=== PATIENT | male | born 1970 | race African-American/Black ===

== ENCOUNTER 2017-11-22 17:35 | Inpatient (IN) ==
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
--- NOTE | 2017-11-22 18:53 | XR ---
EXAM DATE: 11/22/2017 6:48 PM EDT AGE/SEX: 47 years / Male INDICATIONS: Bilateral chest pain. CLINICAL DATA: This is the patient's initial encounter. Patient reports that signs and symptoms have been present for 1 day and indicates a pain score of 5/10. MEDICAL/SURGICAL HISTORY: None. None. COMPARISON: No prior exams available for comparison. FINDINGS: Lungs are focally clear. No pleural effusion evident. Cardiac contours are satisfactory for technique and projection. CONCLUSION: No acute disease Electronically signed by: Laron Gomez MD 11/22/2017 6:51 PM EDT
[2017-11-22 19:12] LABS: Baso # (Auto) 0.1 th/mm3 (0.0-0.2); Baso % (Auto) 0.6 % (0.0-2.0); Eos # (Auto) 0.2 th/mm3 (0.0-0.4); Hematocrit 46.3 % (39.0-51.0); Hemoglobin 15.6 gm/dL (13.0-17.0); Lymph # (Auto) 1.5 th/mm3 (1.0-4.8); Lymph % (Auto) 16.2 % (9.0-44.0); Mean Corpuscular HGB Conc 33.7 % (32.0-36.0); Mean Corpuscular Hemoglobin 24.9 pg (27.0-34.0); Mean Corpuscular Volume 73.8 fL (80.0-100.0); Mean Platelet Volume 8.3 fL (7.0-11.0); Mono # (Auto) 0.7 th/mm3 (0.0-0.9); Mono % (Auto) 8.1 % (0.0-8.0); Neut # (Auto) 6.7 th/mm3 (1.8-7.7); Neut % (Auto) 73.1 % (16.0-70.0); Platelet Count 244 th/mm3 (150-450); Red Blood Count 6.27 mil/mm3 (4.50-5.90); Red Cell Distribution Width 15.6 % (11.6-17.2); White Blood Count 9.2 th/mm3 (4.0-11.0)
[2017-11-22 19:25] LABS: Activated Partial Thrombo Time 24.8 sec (24.3-30.1); INR 1.1 Ratio; Prothrombin Time 11.4 sec (9.8-11.6)
[2017-11-22 19:26] LABS: D-Dimer 0.64 mg/L FEU (0.00-0.50)
[2017-11-22 20:03] LABS: Anion Gap 12 meq/L (5-15); Blood Urea Nitrogen 10 mg/dL (7-18); Calcium 8.8 mg/dL (8.5-10.1); Carbon Dioxide 26.2 meq/L (21.0-32.0); Chloride 102 meq/L (98-107); Creatine Kinase 544 U/L (39-308); Glomerular Filtration Rate 86 mL/min (>89); Glucose,Random 105 mg/dL (74-106); Sodium 140 meq/L (136-145); Troponin I 0.02 ng/mL (0.02-0.05)
[2017-11-22 20:05] LABS: Potassium 2.6 meq/L (3.5-5.1)
[2017-11-22 20:21] LABS: CKMB Percent 0.4 % (0.0-4.0); Creatine Kinase MB 2.4 ng/mL (0.5-3.6)
[2017-11-22] MEDS ORDERED: Potassium Chlor 20 mEq Premix 20 MEQ/100 ML PIGGYBACK IV.SIG ONE (20:25)
[2017-11-22] MEDS ORDERED: Bisacodyl 10 MG Supp RECTAL PRN (22:01)
[2017-11-22 22:39] LABS: Amphetamine Screen,Urine Neg (Neg); Barbiturate Screen,Urine Neg (Neg); Cannabinoid Screen,Urine Neg (Neg); Cocaine Screen,Urine Pos (Neg); Opiate Screen,Urine Neg (Neg)
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
[2017-11-23] MEDS: Sod Chloride 0.9% Inj 1,000 ML IV.CONT SCH ×2 (00:17→14:38)
[2017-11-23 01:01] LABS: Potassium 3.4 meq/L (3.5-5.1)
[2017-11-23 01:05] LABS: Troponin I 0.09 ng/mL (0.02-0.05)
[2017-11-23 01:17] LABS: CKMB Percent 0.6 % (0.0-4.0); Creatine Kinase MB 2.5 ng/mL (0.5-3.6)
[2017-11-23 06:57] LABS: Baso % (Auto) 0.3 % (0.0-2.0); Eos # (Auto) 0.3 th/mm3 (0.0-0.4); Eos % (Auto) 3.7 % (0.0-4.0); Hematocrit 39.3 % (39.0-51.0); Hemoglobin 13.2 gm/dL (13.0-17.0); Lymph # (Auto) 1.9 th/mm3 (1.0-4.8); Mean Corpuscular HGB Conc 33.6 % (32.0-36.0); Mean Corpuscular Volume 74.4 fL (80.0-100.0); Mean Platelet Volume 8.3 fL (7.0-11.0); Mono % (Auto) 11.9 % (0.0-8.0); Neut # (Auto) 4.8 th/mm3 (1.8-7.7); Neut % (Auto) 60.1 % (16.0-70.0); Platelet Count 236 th/mm3 (150-450); Red Blood Count 5.29 mil/mm3 (4.50-5.90); Red Cell Distribution Width 15.1 % (11.6-17.2)
[2017-11-23] MEDS: Acetaminophen 325 MG Tablet PO PRN ×2 (07:39→14:58)
[2017-11-23 07:46] LABS: Alanine Aminotransferase 23 U/L (12-78); Albumin 3.1 g/dL (3.4-5.0); Alkaline Phosphatase 63 U/L (45-117); Anion Gap 11 meq/L (5-15); Aspartate Aminotransferase 22 U/L (15-37); Blood Urea Nitrogen 12 mg/dL (7-18); Calcium 7.7 mg/dL (8.5-10.1); Chloride 103 meq/L (98-107); Creatine Kinase 414 U/L (39-308); Glomerular Filtration Rate 74 mL/min (>89); Glucose,Random 116 mg/dL (74-106); Potassium 3.2 meq/L (3.5-5.1); Sodium 141 meq/L (136-145); Total Protein 6.5 g/dL (6.4-8.2); Troponin I 0.07 ng/mL (0.02-0.05)
[2017-11-23 08:52] LABS: CKMB Percent 0.6 % (0.0-4.0); Creatine Kinase MB 2.4 ng/mL (0.5-3.6)
[2017-11-23] MEDS ORDERED: Senna/Docusate Sodium 8.6/50 MG Tablet PO SCH (09:00)
--- NOTE | 2017-11-23 10:07 | P.PN ---
Subjective Interval history: F/U Fib. Patient has remained in sinus after Cardizem bolus yesterday. He has no more complaints he wants to go home. States he will refrain from using cocaine Physical Exam Vital signs: Vital Signs 11/22/17 17:41 11/22/17 17:46 11/22/17 19:09 Temperature 98.4 F 98.4 F Pulse Rate 68 60 66 Respiratory Rate 18 18 16 Blood Pressure 144/63 H 144/63 H 111/66 Blood Pressure [Left Arm] Blood Pressure [Right Arm] Pulse Oximetry 96 95 11/22/17 20:28 11/22/17 21:01 11/22/17 23:31 Temperature Pulse Rate 74 83 Respiratory Rate 16 16 Blood Pressure 112/61 110/81 Blood Pressure [Left Arm] 111/60 Blood Pressure [Right Arm] 101/49 L Pulse Oximetry 95 97 97 11/23/17 01:00 11/23/17 01:03 11/23/17 02:00 Temperature 97.1 F L Pulse Rate 62 69 74 Respiratory Rate 16 Blood Pressure 141/87 H Blood Pressure [Left Arm] Blood Pressure [Right Arm] Pulse Oximetry 97 11/23/17 03:00 11/23/17 04:59 Temperature Pulse Rate 60 84 Respiratory Rate 16 Blood Pressure 153/92 H Blood Pressure [Left Arm] Blood Pressure [Right Arm] Pulse Oximetry 100 Intake & Output 11/22/17 11/23/17 11/23/17 18:59 06:59 18:59 Intake Total 480 / 480 Output Total 900 / 900 Balance -420 / -420 Weight 154.221 kg 155.2 kg Intake: Oral 480 / 480 Output: Urine 900 / 900 Other: Weight On Admission 154.2 kg Narrative: GENERAL: Middle-aged white male in no acute distress. HEENT: PERRLA, EOMI. No scleral icterus or conjunctival pallor. No lid lag or facial droop. CARDIOVASCULAR: Regular rate and rhythm. No obvious murmurs to auscultation. No chest tenderness to palpation. RESPIRATORY: No obvious rhonchi or wheezing. Clear to auscultation. Breath sounds equal bilaterally. GASTROINTESTINAL: Abdomen soft, non-tender, nondistended. BS normal. MUSCULOSKELETAL: Extremities without clubbing, cyanosis, or edema. No obvious deformities. NEUROLOGICAL: Awake, alert and oriented x4. No focal neurologic deficits. Moving both upper and lower extremities spontaneously. Results - Labs CBC & Chem 7: 11/23/17 05:10 11/23/17 05:10 Laboratory Results - last 24 hr 11/22/17 11/22/17 11/22/17 18:54 19:00 19:00 WBC 9.2 RBC 6.27 H Hgb 15.6 Hct 46.3 MCV 73.8 L MCH 24.9 L MCHC 33.7 RDW 15.6 Plt Count 244 MPV 8.3 Neut % (Auto) 73.1 H Lymph % (Auto) 16.2 [place]bert % (Auto) 8.1 H Eos % (Auto) 2.0 Baso % (Auto) 0.6 Neut # (Auto) 6.7 Lymph # (Auto) 1.5 [place] # (Auto) 0.7 Eos # (Auto) 0.2 Baso # (Auto) 0.1 WBC Differential . Differential Comment Auto diff final PT 11.4 INR 1.1 APTT 24.8 D-Dimer Quant (PE/DVT) 0.64 H Sodium Potassium Chloride Carbon Dioxide Anion Gap BUN Creatinine Estimated GFR POC Glucose 120 H Random Glucose Calcium Magnesium Total Bilirubin AST ALT Alkaline Phosphatase Total Creatine Kinase CK-MB (CK-2) CK-MB (CK-2) % Troponin I B-Natriuretic Peptide Total Protein Albumin Urine Opiates Screen Ur Barbiturates Screen Ur Amphetamines Screen U Benzodiazepines Scrn Urine Cocaine Screen U Cannabinoids Screen Serum Alcohol 11/22/17 11/22/17 11/22/17 19:00 19:00 21:08 WBC RBC Hgb Hct MCV MCH MCHC RDW Plt Count MPV Neut % (Auto) Lymph % (Auto) [place] % (Auto) Eos % (Auto) Baso % (Auto) Neut # (Auto) Lymph # (Auto) [place] # (Auto) Eos # (Auto) Baso # (Auto) WBC Differential Differential Comment PT INR APTT D-Dimer Quant (PE/DVT) Sodium 140 Potassium 2.6 L* Chloride 102 Carbon Dioxide 26.2 Anion Gap 12 BUN 10 Creatinine 1.10 Estimated GFR 86 L POC Glucose Random Glucose 105 Calcium 8.8 Magnesium 2.0 Total Bilirubin AST ALT Alkaline Phosphatase Total Creatine Kinase 544 H CK-MB (CK-2) 2.4 CK-MB (CK-2) % 0.4 Troponin I 0.02 B-Natriuretic Peptide 41 Total Protein Albumin Urine Opiates Screen Neg Ur Barbiturates Screen Neg Ur Amphetamines Screen Neg U Benzodiazepines Scrn Neg Urine Cocaine Screen Pos U Cannabinoids Screen Neg Serum Alcohol Less than 3 11/23/17 11/23/17 11/23/17 00:12 05:10 05:10 WBC 8.0 RBC 5.29 Hgb 13.2 D Hct 39.3 MCV 74.4 L MCH 25.0 L MCHC 33.6 RDW 15.1 Plt Count 236 MPV 8.3 Neut % (Auto) 60.1 Lymph % (Auto) 24.0 Elbert % (Auto) 11.9 H Eos % (Auto) 3.7 Baso % (Auto) 0.3 Neut # (Auto) 4.8 Lymph # (Auto) 1.9 [place]bert # (Auto) 1.0 H Eos # (Auto) 0.3 Baso # (Auto) 0.0 WBC Differential . Differential Comment Auto diff final PT INR APTT D-Dimer Quant (PE/DVT) Sodium 141 Potassium 3.4 L D 3.2 L Chloride 103 Carbon Dioxide 27.0 Anion Gap 11 BUN 12 Creatinine 1.25 Estimated GFR 74 L POC Glucose Random Glucose 116 H Calcium 7.7 L D Magnesium Total Bilirubin 0.7 AST 22 ALT 23 Alkaline Phosphatase 63 Total Creatine Kinase 442 H 414 H CK-MB (CK-2) 2.5 2.4 CK-MB (CK-2) % 0.6 0.6 Troponin I 0.09 H 0.07 H B-Natriuretic Peptide Total Protein 6.5 Albumin 3.1 L Urine Opiates Screen Ur Barbiturates Screen Ur Amphetamines Screen U Benzodiazepines Scrn Urine Cocaine Screen U Cannabinoids Screen Serum Alcohol - Imaging Impressions Chest X-Ray 11/22/17 18:24 CONCLUSION: No acute disease Chest CTA 11/22/17 19:38 CONCLUSION: 1. No evidence of pulmonary embolism. 2. Cardiomegaly. 3. Hepatosplenomegaly. 4. Degenerative changes and scoliosis of the thoracic spine. - Procedures none Assessment and Plan - Assessment (1) Atrial fibrillation with RVR Code(s): I48.91 - Unspecified atrial fibrillation Status: Acute (2) Hypokalemia Code(s): E87.6 - Hypokalemia Status: Acute (3) Chest pain Code(s): R07.9 - Chest pain, unspecified Status: Acute (4) Cocaine abuse Code(s): F14.10 - Cocaine abuse, uncomplicated Status: Acute (5) Rhabdomyolysis Code(s): M62.82 - Rhabdomyolysis Status: Acute - Plan 1. A. fib: w/ RVR, h/o A-fib however not on medications, HR 160-170's s/p Cardizem 20mg IV x1 by EMS, now in NSR, HR 80's. Likely exacerbated by Cocaine abuse. He has remained in sinus rhythm hemodynamically stable. 2. Chest Pain: likely due to A-fib w/ RVR in combination w/ chest pain. Troponin slightly elevated secondary to A. fib and cocaine use. Continue aspirin and statin. Hold beta-robert for now due to recent cocaine use. Outpatient follow-up with cardiology may need stress test at this time he is completely asymptomatic and wants to go home. 3. Hypokalemia: Replaced. Mg normal. 4. Rhabdomyolysis: Mild. Patient on IV hydration with adequate oral intake. 5. Cocaine Abuse: Pt counselled, Ativan prn for withdrawal. 6. DVT Prophylaxis: SCD/Teds Discussed Condition With: pt Discharge Planning: Patient is discharged in stable condition. He has improved significantly earlier than anticipated Diet as tolerated Activity as tolerated no driving and strenuous activities See medication reconciliation form New medications aspirin and statin Follow-up with MD and cardiology Progress Note: Quality - VTE Deep Vein Thrombosis/Pulmonary Embolism Present on Admission: No
--- NOTE | 2017-11-23 10:38 | ECG ---
Date Performed: 11/22/2017 Time Performed: 17:42:23 PTAGE: 47 years EKG: Sinus rhythm POSSIBLE LEFT ATRIAL ENLARGEMENT MODERATE INTRAVENTRICULAR CONDUCTION DELAY PROLONGED QT INTERVAL AB NORMAL ECG NO PREVIOUS TRACING DOCTOR: Pravin Hernandez Interpretating Date/Time 11/23/2017 10:36:38
--- NOTE | 2017-11-23 10:38 | ECG ---
Date Performed: 11/22/2017 Time Performed: 18:54:50 PTAGE: 47 years EKG: Sinus rhythm PROLONGED QT INTERVAL ABNORMAL ECG INTERPRETATION BASED ON A DEFAULT AGE OF 38 YEARS NO PREVIOUS TRACING DOCTOR: Pravin Hernandez Interpretating Date/Time 11/23/2017 10:36:22
[2017-11-23 15:39] LABS: Magnesium 2.2 mg/dL (1.5-2.5); Thyroid Stimulating Hormone 0.946 uIU/mL (0.358-3.740)
== END 2017-11-23 19:18 | disposition home or self-care (01) ==
LOC: NEPE 17:35 → NEDA 22:00 → HCIS 11-23 00:47
PROVIDERS: ADMIT Internal Medicine; ATTEND Internal Medicine

== ENCOUNTER 2017-12-29 12:22 | Observation (INO) ==
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
[2017-12-29 15:34] LABS: Baso % (Auto) 0.2 % (0.0-2.0); Eos # (Auto) 0.2 th/mm3 (0.0-0.4); Eos % (Auto) 2.7 % (0.0-4.0); Hematocrit 39.2 % (39.0-51.0); Hemoglobin 13.1 gm/dL (13.0-17.0); Lymph # (Auto) 1.5 th/mm3 (1.0-4.8); Lymph % (Auto) 21.9 % (9.0-44.0); Mean Corpuscular HGB Conc 33.3 % (32.0-36.0); Mean Corpuscular Hemoglobin 25.3 pg (27.0-34.0); Mean Corpuscular Volume 75.8 fL (80.0-100.0); Mean Platelet Volume 8.2 fL (7.0-11.0); Mono # (Auto) 0.7 th/mm3 (0.0-0.9); Mono % (Auto) 9.6 % (0.0-8.0); Neut # (Auto) 4.6 th/mm3 (1.8-7.7); Neut % (Auto) 65.6 % (16.0-70.0); Platelet Count 192 th/mm3 (150-450); Red Blood Count 5.18 mil/mm3 (4.50-5.90); Red Cell Distribution Width 15.3 % (11.6-17.2)
[2017-12-29 15:51] LABS: Albumin 3.5 g/dL (3.4-5.0); Anion Gap 7 meq/L (5-15); Aspartate Aminotransferase 24 U/L (15-37); Blood Urea Nitrogen 19 mg/dL (7-18); Calcium 8.7 mg/dL (8.5-10.1); Carbon Dioxide 31.1 meq/L (21.0-32.0); Chloride 102 meq/L (98-107); Glomerular Filtration Rate 49 mL/min (>89); Glucose,Random 109 mg/dL (74-106); Potassium 3.3 meq/L (3.5-5.1); Sodium 140 meq/L (136-145)
[2017-12-29 15:56] LABS: Alanine Aminotransferase 24 U/L (12-78); Alkaline Phosphatase 58 U/L (45-117); Total Protein 7.2 g/dL (6.4-8.2)
[2017-12-29] MEDS ORDERED: Acetaminophen 500 MG Tablet PO PRN (21:07)
[2017-12-29 21:41] LABS: Creatine Kinase 848 U/L (39-308)
[2017-12-29 21:53] LABS: CKMB Percent 0.2 % (0.0-4.0); Creatine Kinase MB 1.7 ng/mL (0.5-3.6)
[2017-12-30 01:01] LABS: Troponin I 0.02 ng/mL (0.02-0.05)
[2017-12-30 01:14] LABS: CKMB Percent 0.1 % (0.0-4.0); Creatine Kinase MB 1.5 ng/mL (0.5-3.6)
[2017-12-30 03:38] VITALS: O2SAT 96
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
--- NOTE | 2017-12-30 08:37 | ECG ---
Date Performed: 12/30/2017 Time Performed: 00:18:23 PTAGE: 47 years EKG: SINUS BRADYCARDIA MODERATE T-WAVE ABNORMALITY, CONSIDER ANTEROLATERAL ISCHEMIA MODERATE T-W AVE ABNORMALITY, CONSIDER INFERIOR ISCHEMIA ABNORMAL ECG PREVIOUS TRACING : 12/29/2017 13.11 Since previous tracing, no significant change noted DOCTOR: Pravin Hernandez Interpretating Date/Time 12/30/2017 08:36:22
--- NOTE | 2017-12-30 08:38 | ECG ---
Date Performed: 12/29/2017 Time Performed: 20:52:00 PTAGE: 47 years EKG: Sinus rhythm MODERATE INTRAVENTRICULAR CONDUCTION DELAY MODERATE T-WAVE ABNORMALITY, CONSIDER ANTEROLATERAL ISCHE BO MODERATE T-WAVE ABNORMALITY, CONSIDER INFERIOR ISCHEMIA ABNORMAL ECG NO PREVIOUS TRACING DOCTOR: Pravin Hernandez Interpretating Date/Time 12/30/2017 08:36:52
--- NOTE | 2017-12-30 08:39 | ECG ---
Date Performed: 12/29/2017 Time Performed: 13:11:42 PTAGE: 47 years EKG: Sinus rhythm POSSIBLE LEFT ATRIAL ENLARGEMENT MODERATE T-WAVE ABNORMALITY, CONSIDER ANTEROLATERAL ISCHEMIA MODERA TE T-WAVE ABNORMALITY, CONSIDER INFERIOR ISCHEMIA ABNORMAL ECG PREVIOUS TRACING : 12/24/2017 10.42 Since previous tracing, no significant change noted DOCTOR: Pravin Hernandez Interpretating Date/Time 12/30/2017 08:37:43
[2017-12-30 08:40] VITALS: PULSE 61
[2017-12-30 08:50] VITALS: BP 151/71; RESP 18; TEMP 98
[2017-12-30] MEDS ORDERED: Regadenoson Inj 0.4 MG/5 ML Syringe IV.PUSH ONE (09:17)
--- NOTE | 2017-12-30 10:43 | NM ---
EXAM DATE: 12/30/2017 10:35 AM EDT AGE/SEX: 47 years / Male INDICATIONS:Angina. . Mid chest pain for one day. CLINICAL DATA: This is the patient's initial encounter. Patient reports that signs and symptoms have been present for 1 day and indicates a pain score of 5/10. MEDICAL/SURGICAL HISTORY: Hypertension. None. COMPARISON: No prior exams available for comparison. [facility], DOSE: 11 mCi Tc 99m Myoview at rest 35 mCi [id number] at stress 0.4 mg Lexiscan STRESS SYMPTOMS: Dyspnea. MEDICATION: 60 mg caffeine IV EJECTION FRACTION: 50 % TECHNIQUE: The patient underwent pharmacologic stress with infusion of prescribed dose. Continuous ECG tracing was monitored during stress. Gated SPECT imaging was performed after stress and conventi onal SPECT imaging was performed at rest. The examination was performed on a SPECT/CT scanner, both attenuation and non-corrected datasets were reviewed. FINDINGS: Distribution: The maximum perfused segment at stress is in the lateral wall. Perfusion Study: There is a fixed defect at the apex. No reversible defects observed.. Gated Study: There are intact wall motion and wall thickening without hypokinetic or dyskinetic segm ents. The ejection fraction is calculated at 50%. RISK CATEGORY: Low (<1% Annual Motality Rate) CONCLUSION: 1. No reversible defects observed to suggest acute ischemia. Electronically signed by: Warren Barajas MD 12/30/2017 10:41 AM EDT
--- NOTE | 2018-01-01 14:48 | TR ---
Date Performed: 12/30/2017 Time Performed: 09:24:15 DOCTOR: Pravin Hernandez DRUG LIST: CLINICAL HISTORY: CHEST PAIN REASON FOR TEST: CHEST PAIN REASON FOR ENDING: OBSERVATION: CONCLUSION: COMMENTS: Lexiscan stress test was performed under standard four minute protocol. Radionuclide was injected one minute prior to ending the test. No electrocardiographic abormalities were present t o suggest ischemia. Nuclear imaging and interpretation are pending.
== END 2017-12-30 11:45 | disposition home or self-care (01) ==
LOC: NEPFCDU 12:22 → NEDA 12:22 → NEPC 12:22 → NEDA 20:25 → NEPFCDU 21:50
PROVIDERS: ADMIT Internal Medicine Interventional Cardiology; ATTEND Internal Medicine Interventional Cardiology
DX: Z79.82 Long term (current) use of aspirin; I10 Essential (primary) hypertension; Z79.899 Other long term (current) drug therapy; I48.91 Unspecified atrial fibrillation; R07.89 Other chest pain